=== PATIENT | female | born 1985 | race Caucasian/White ===

== ENCOUNTER → 2019-04-29 12:28 | Outpatient (CLI) | payer OTHER, SELFPAY ==
[2019-04-29 14:13] LABS: hCG Titer Quant., Serum 2058 mIU/mL (1-3)
== END ==
PROVIDERS: Referring Provider Obstetrics & Gynecology; Visit Provider Obstetrics & Gynecology
DX: O20.0 Threatened abortion (principal)
CPT/HCPCS: 36415; 84702

== ENCOUNTER → 2019-05-01 12:32 | Outpatient (CLI) | payer OTHER, SELFPAY ==
[2019-05-01 13:34] LABS: hCG Titer Quant., Serum 2044 mIU/mL (1-3)
== END ==
PROVIDERS: Referring Provider Obstetrics & Gynecology; Visit Provider Obstetrics & Gynecology
DX: O20.0 Threatened abortion (principal)
CPT/HCPCS: 36415; 84702

== ENCOUNTER 2021-07-06 17:08 | Outpatient (CLI) | payer OTHER, SELFPAY ==
[2021-07-10 14:48] LABS: HPV APTIMA, High Risk Negative (Negative)
== END 2021-07-06 23:59 | disposition home or self-care (01) ==
PROVIDERS: Visit Provider Obstetrics & Gynecology
DX: Z12.4 Encounter for screening for malignant neoplasm of cervix (principal)
CPT/HCPCS: 87624; 88175; G0145